=== PATIENT | female | born 1945 | race Caucasian/White ===

== ENCOUNTER → 2021-10-31 00:19 | Outpatient (CLI) | payer MEDICARE, BC, SELFPAY ==
--- NOTE | 2021-10-31 08:45 | DI.NM_ITS ---
APPROVED REPORT Exam: Exercise Treadmill Patient Location: Out-Patient Room/Bed: Stress Nurse: Megan Galarza RN Ordering Provider:LEEROY THOMAS MD Contact Number: [phone] BMI: 52.91 Baseline Rhythm: Sinus Rhythm Comment: LAFB, RVH Indications: Chest pain Medical History Medical History: Hypertension, hyperlipidemia, diabetes, obesity Cardiac Medications: Aspirin, atorvastatin, lasix, lisinopril, HCTZ, metoprolol succinate Allergies: Keflex Cardiac Risk Factors: Hypertension, hyperlipidemia, diabetes, obesity, smoker (former) Previous Cardiac Procedures: None Pretest Chest Pain Characteristics: None Exercise History: Sedentary Physical Disabilities: Limitation w/ exercise capacity Lung Sounds: Clear to auscultation Heart Sounds: Regular Stress Test Details Test: Exercise stress testing was performed using a modified Riley protocol. Nuclear Acquisition: Rest Tc-99m/Stress Tc-99m 1 day Rest Isotope: Tc-99m Sestamibi. Dose: 14.0 Date: 10/31/2021 Injection Time: 0845 Stress Isotope: Tc-99m Sestamibi. Dose: 45.0 Date: 10/31/2021 Injection Time: 45.0 HR Resting HR Supine: 84 bpm Max Heart Rate (APMHR): 146.231519 bpm Resting HR Standin bpm Target HR (85% APMHR): 124.829299 bpm Max HR Achieved: 138 bpm % of APMHR: 94.52 Recovery HR: 98 bpm HR response to stress: Normal HR response to stress Comment: Metoprolol succinate held for 48 hrs BP Resting BP Supine: 158/70 mmHg Resting BP Standin/68 mmHg Max BP: 222/82 mmHg Recovery BP: 148/60 mmHg BP response to stress: Abnormal hypertensive response to stress. ECG Resting ECG: Sinus Rhythm, LAFB, RVH Ectopy: None Stress ECG: Sinus Tachycardia ST Change: No significant ST segment changes noted Arrhythmia: Frequent multifocal PVCs, couplets Recovery ECG: Sinus Rhythm Recovery ST Change: No significant ST segment changes noted Recovery Arrhythmia: Rare PAC, occasional PVCs Clinical Reason for Termination: Fatigue, Dyspnea Stress Symptoms: General Fatigue, Dyspnea Exercise duration: 2 min59 sec Highest Stage Reached: Stage 0: 1.7 mph at 0% grade. Exercise capacity: 2.30 METs Angina Score: None Kraft Treadmill Score: 2.7 Rate Pressure Product: [id number] Stress ECG Conclusion 1. Resting electrocardiogram showed left anterior fascicular block, abnormal R wave progression 2. Patient exercised on a modified Riley protocol and completed a workload of 2.3 METS 3. Hypertensive blood pressure response to exercise. Accelerated heart rate response to exercise. T he patient achieved 94% of predicted heart rate for age 4. The electrocardiographic portion of the test showed no evidence of myocardial ischemia 5. PVCs were noted 6. See MPI report Kraft Treadmill Score is 2.7 which is Moderate risk. Stress Test Summary STAGE Time (mins) Speed (mph) Grade (%) HR BP SYMPTOMS METS Supine 84 158/70 Standing 97 174/68 SpO2 94% 1 3 1.7 10 135 182/72 Moderate SOB, SpO2 87% 4.6 1 min recovery 121 222/82 Mild SOB, SpO2 89% 3 min recovery 105 212/72 SOB improving, SpO2 91% 6 min recovery 98 148/60 SOB resolved, SpO2 95% Pt exercised with Modified Riley protocol at 1.7 mph at 0% grade. Tolerated testing well. MPI Conclusion Myocardial perfusion is normal. There is no evidence of ischemia or prior infarction EF 65%, normal wall motion Radiologist Interpretation Radiologist agrees with Outside Barrel Lathe Operator's Interpretation. Radiologist Interpretation by: Mallorie Cook MD Interpretation Date/Time: 10/31/2021 17:03:28
== END ==
PROVIDERS: Visit Provider Internal Medicine Interventional Cardiology
DX: R07.89 Other chest pain (principal)
CPT/HCPCS: 78452; 93016; 93018; 93017

== ENCOUNTER 2022-03-05 09:27 | Day surgery (SDC) | payer MEDICARE, BC, SELFPAY ==
--- NOTE | 2022-03-05 06:44 | W.ANESPRE ---
General Info Date of Service Date Performed: 03/05/22 Height: 5 ft 5.5 in Weight: 142.428 kg Body Mass Index (BMI): 51.4 Surgical Procedure: Operation Date: 03/05/22 12:40 Proposed Procedure Side Surgeon p Cataract Extraction with IOL Implant Left Felipe Clements MD Meds Allergies and Home Medications Allergies Allergy/AdvReac Type Severity Reaction Status Date / Time cephalexin Allergy Intermediate Skin Rash Unverified 03/05/22 09:47 Home Medication Medication Instructions Recorded aspirin 325 mg tablet 325 mg PO DAILY 03/01/22 atorvastatin 40 mg tablet 1 tab PO DAILY 03/01/22 cyanocobalamin (vitamin B-12) 100 100 mcg PO DAILY 03/01/22 mcg tablet (Vitamin B-12) furosemide 40 mg tablet 1 tab PO DAILY 03/01/22 insulin glargine 100 unit/mL (3 20 unit subcut BID 03/01/22 mL) subcutaneous pen (Basaglar KwikPen U-100 Insulin) insulin lispro 100 unit/mL 10 unit subcut QID 03/01/22 subcutaneous pen (Humalog KwikPen (U-100) Insulin) levothyroxine 100 mcg tablet 1 tab PO DAILY 03/01/22 liraglutide 0.6 mg/0.1 mL (18 mg/3 1.8 mg subcut DAILY 03/01/22 mL) subcutaneous pen injector (Victoza 2-Taiwo) lisinopril 20 1 tab PO BID 03/01/22 mg-hydrochlorothiazide 12.5 mg tablet metformin 500 mg tablet 1 tab PO BID 03/01/22 metoprolol succinate 50 mg 1 tab PO DAILY 03/01/22 tablet,extended release 24 hr naloxone 4 mg/actuation nasal 4 mg intranasal DIRECTED 03/01/22 spray (Narcan) oxycodone-acetaminophen 5 mg-325 1 tab PO QID PRN 03/01/22 mg tablet Current Visit Medications: Current Medications Generic Name Dose Route Start Last Admin Trade Name Freq PRN Reason Stop Dose Admin Acetaminophen 1,000 mg 03/05/22 06:00 Acetaminophen 500 Mg Tab PO Q4H PRN PRN Miscellaneous Medication 0 ml 03/05/22 06:00 Prednisolone 1%, Moxifloxacin 0.5%, Nepafenac 0.1% 5ml Btl OS DIRECTED AMMY Miscellaneous Medication 0 ml 03/05/22 06:00 Tropicam./Phenyleph. (1/2.5%) 5 Ml Btl OS DIRECTED [facility] Tetracaine HCl 0 ml 03/05/22 06:00 Tetracaine 0.5% 4 Ml Btl OS DIRECTED [facility] Medical History Medical History Carpal tunnel syndrome, left Chronic back pain Diabetes mellitus Disorder of thyroid gland Hip pain Hypercapnia Hypercapnic respiratory failure Hypertensive disorder Knee pain Lesion of ulnar nerve Mallet finger Surgical History Surgical History History of carpal tunnel surgery of right wrist Hx of section Hx of colonoscopy Hx of tonsillectomy Tobacco Smoking/Tobacco Use Status: Former Tobacco Use Alcohol Alcohol Intake: current Alcohol intake frequency: holidays/special occasions only Substance Use Substance use: Never Substance use type: does not use Vital Signs and Lab Results Vital Signs Most Recent Vital Signs in EMR: Temp Pulse Resp BP Pulse Ox 36.5 C 70 18 173/69 H 98 03/05/22 09:30 03/05/22 09:30 03/05/22 09:30 03/05/22 09:30 03/05/22 09:30 Lab Results Blood Type / Crossmatch: No Data to Display Complete Blood Count: No Data to Display Complete Metabolic Panel: No Data to Display Liver Function Panel: No Data to Display Coagulation Panel: No Data to Display Cardiac Panel: No Data to Display Arterial Blood Gas: No Data to Display Venous Blood Gas: No Data to Display Pancreas Panel: No Data to Display Thyroid Panel: No Data to Display Infectious Disease: No Data to Display Blood Cultures: No Data to Display Toxicology Panel: No Data to Display Imaging and Studies Imaging and Studies Study information below may be from another EMR and interpreted by another provider. Please see original notes in EMR for more complete details. Stress Test Summary: 11/15: LAFB. 2.3 METS, no evidence of ischemia on EKG portion. MPI with noromal perfusion. Anesthesia Assessment and Plan Anesthesia History Personal History: No History of Anesthesia Complications Family History: No Family History of Anesthesia Complications Exercise Tolerance Exercise Tolerance: Metabolic Equivalents>4 Cardiac & Pulmonary Exam Cardiac Exam: Normal S1/S2 Heart Sounds Pulmonary Exam: Clear Bilateral Breath Sounds Implantable Cardiac Device Does patient have a Pacemaker or an ICD?: No Airway Exam Known Difficult Airway: No Mallampati Class: 2 Mouth Opening: Normal (> 3cm) Thyromental Distance: Greater than 3 cm Neck Range of Motion: Full ROM Neck Circumference: Thick Teeth Condition: Normal Dentition ASA Classification ASA Score: ASA 3 Emergency Case?: No NPO Status NPO Status: NPO Clears >2 hours, Solids >8 hours Anesthesia Plan Resuscitation Status: Full Code Anesthesia Technique: MAC Anesthesia Airway Planned: Natural Airway Monitors Used: Standard Monitors Preoperative Comments:: 76 female for cataract removal. Sig PMHx: DM, HTN, former smoker, hypothyroid. Would like MKO
[2022-03-05 09:30] VITALS: BP 173/69; PULSE 70; RESP 18; TEMP 36.5; O2SAT 98
[2022-03-05] MEDS: Tropicam./Phenyleph. (1/2.5%) 5 ML BTL OS ×3 (09:47→10:11)
[2022-03-05 10:03] VITALS: BMI 51.4
[2022-03-05] MEDS: Lidocaine 2% Jelly 6 ML SYR (10:49)
[2022-03-05] MEDS: Tetracaine 0.5% 4 ML BTL OS (10:49)
[2022-03-05] MEDS: Povidone-Iodine Ophth 30 ML BTL (10:50)
[2022-03-05] MEDS: Balanced Salt Soln.-PLUS 500 ML BAG (10:53)
[2022-03-05] MEDS: Duovisc Viscoelastic System EACH 1 EACH (10:54)
[2022-03-05 11:12] VITALS: BP 125/53; PULSE 73; RESP 16; TEMP 36; O2SAT 98
--- NOTE | 2022-03-05 11:14 | PDOC.DSDIS_ITS ---
Discharge Plan Disposition Patient Disposition: HOME Condition: Good Discharge Details Attending Provider: Felipe Clements Primary Care Provider: Manoj Roe [place] Meds and New Rx's Prescriptions: No Action furosemide 40 mg tablet 1 tab PO DAILY Label Comments: TAKE 1 TABLET BY MOUTH DAILY atorvastatin 40 mg tablet 1 tab PO DAILY Label Comments: TAKE 1 TABLET BY MOUTH DAILY metformin 500 mg tablet 1 tab PO BID cyanocobalamin (vitamin B-12) [Vitamin B-12] 100 mcg Tablet 100 mcg PO DAILY lisinopril-hydrochlorothiazide 20-12.5 mg tablet 1 tab PO BID Label Comments: TAKE 1 TABLET BY MOUTH TWICE DAILY aspirin 325 mg Tablet 325 mg PO DAILY metoprolol succinate 50 mg tablet extended release 24 hr 1 tab PO DAILY Label Comments: TAKE 1 TABLET BY MOUTH EVERY DAY levothyroxine 100 mcg tablet 1 tab PO DAILY Label Comments: TAKE 1 TABLET BY MOUTH DAILY oxycodone-acetaminophen 5-325 mg tablet 1 tab PO QID PRN Label Comments: TAKE 1 TABLET BY MOUTH 4 TIMES DAILY NEEDED insulin lispro [Humalog KwikPen Insulin] 100 unit/mL insulin pen 10 unit SUBCUT QID insulin glargine [Basaglar KwikPen U-100 Insulin] 100 unit/mL (3 mL) insulin pen 20 unit SUBCUT BID Victoza 2-Taiwo 0.6 mg/0.1 mL (18 mg/3 mL) Pen Injector 1.8 mg SUBCUT DAILY naloxone [Narcan] 4 mg/actuation [place],Non-Aerosol 4 mg INTRANASAL DIRECTED Discharge Instructions Stand Alone Forms: Post-op Topical CataractKaur (DSU) Discharge Orders Discharge Orders: Discharge Order (Routine); Ordered 03/05/22 Ordered By: Felipe Clements DS: Diagnosis Discharge Diagnosis (1) Cortical cataract of left eye: Status: Resolved (2) Nuclear sclerotic cataract of left eye: Status: Resolved (3) Posterior subcapsular age-related cataract of left eye: Status: Resolved
--- NOTE | 2022-03-05 11:15 | W.PM.OP ---
Date of service: 03/05/22 Time of Service: 11:15 Operative Note Operative Note DATE OF PROCEDURE: 03/05/22 PRE-OP DIAGNOSIS: Nuclear/cortical/posterior subcapsular cataract, left eye POST-OP DIAGNOSIS: same PROCEDURE: Cataract extraction using phacoemulsification with intraocular lens implant, left eye SURGEON: Felipe Clements ANESTHESIA TYPE: Local By Surgeon and MAC Refer to Anesthesia Record PATHOLOGY: none sent COMPLICATIONS: None Patient was transported to: same day Patient's condition: stable Implants: Judah [employer] Judah / [employer] Tecnis [id number] Indications: Progressive decreased vision due to cataract, left eye Procedure Description: CATARACT SURGERY OPERATIVE REPORT PREOPERATIVE DIAGNOSIS: 1. Nuclear/cortical/posterior subcapsular cataract, left eye POSTOPERATIVE DIAGNOSIS: Same OPERATION: 1. Cataract extraction using phacoemulsification with posterior chamber intraocular lens implant, left eye. IOL: IOL Concrete Boom Pump Operator/Model: Judah & Judah / EZEKIEL Tecnis [id number] IOL Power: + 18.5 diopters IOL Serial Number: [id number] Optic Diameter: 6.0 mm Haptic/Overall Diameter: 13.0 mm PHACO INFO: Hira Symphony Dynamourion Vision System with OZil and Active Fluidics Cumulative Dispersed Energy (CDE): 12.37 seconds SURGEON: Felipe Clements MD, YEVGENIY ANESTHESIA: Monitored A [facility] (MAC), with local sub-tenon's anesthetic infiltration COMPLICATIONS: None SPECIMENS: None INDICATIONS FOR PROCEDURE: Patient is a 76-year-old lady with history of diminished visual acuity in her left eye secondary to development of significant nuclear/cortical/posterior subcapsular cataract. The option of cataract surgery was offered to the patient and she felt she was symptomatic at that she wished to proceed. PROCEDURE: The correct surgical eye was identified and marked as the left eye and the pupil was dilated in the preoperative area using mydriatics and cycloplegics. The dilated pupil size was 6.0 mm. Oral sedation was administered in the form of an Imprimis MKO Melt (midazolam 3mg/ketamine 25mg/ondansetron 2mg). The patient was brought to the operating room where cardiopulmonary monitoring was instituted and surgical time-out was performed, confirming the correct operative eye and IOL power. Topical anesthesia was administered and ophthalmic povidone-iodine 5% was instilled into the conjunctival fornices. Lidocaine gel was applied to the cornea and the diallo-ocular area was prepped with Betadine 10% solution and draped in the usual sterile fashion for intraocular surgery, including an aperture drape. A Tegaderm transparent film dressing was cut in half and used to cover the lashes and lid margins. Care was taken to sequester the lashes and lid margins under the Tegaderm dressing. A lid speculum was placed between the lids of the operative eye and the Hira LuxOR Revalia operating microscope was maneuvered into position. Rayray scissors were then used to make a conjunctival buttonhole approximately 6mm posterior to the limbus in the inferonasal quadrant. Blunt dissection was carried out to expose bare sclera, and a blunt-tipped sub-tenon?s anesthesia cannula was introduced and passed posteriorly along the globe where non-preserved plain lidocaine was injected into posterior sub-Tenon?s space. A sideport knife was used to make a paracentesis port superiorly/superiortemporally. Intraocular phenylephrine/lidocaine was injected int the anterior chamber.. The anterior chamber was filled with viscoelastic. A keratome knife was used to construct a 2-plane near-clear corneal tunnel extending 2.0mm into clear cornea temporally. A flap was raised on the anterior capsule and capsulorhexis forceps were used to complete a continuous curvilinear capsulorhexis of 5.0 mm. Balanced salt solution was then used to perform cortical cleaving hydrodissection and nuclear hydrodelineation until the lens could be freely rotated within the capsular bag. The lens nucleus was then disassembled and removed within the capsular bag and iris plane using phacoemulsification. Residual cortical material was removed using the 45-degree angled silicone I/A tip with 0.3mm port. The posterior capsule was carefully polished to remove as much residual lens epithelial cells as safely possible. The capsular bag was then inflated and the anterior chamber deepened with viscoelastic. The lens implant described above was inserted into the capsular bag using the EZEKIEL [place] Injector. A Kuglen hook was used to dial the IOL into position. Residual viscoelastic was then removed first from posterior to the IOL, then from the anterior chamber using the I/A handpiece. The lens implant was noted to center nicely within the capsular bag. The incisions were stromally hydrated, and the anterior chamber was reformed using BSS. Then 0.5cc of moxifloxacin 1.0mg/ml were injected into the capsular bag and anterior chamber. The incisions were checked with a Weck spear and found to be secure. Several drops of ophthalmic povidone-iodine 5% were then applied to the eye followed by two drops of Imprimis combination prednisolone/moxifloxacin/nepafenac solution. The drapes were removed and a clear plastic protective eye shield was placed over the eye. The patient was then returned to Same Day Surgery in stable condition.
--- NOTE | 2022-03-05 11:18 | W.ANESPOSTOP ---
Postoperative Evaluation Date, Time and Location Date Performed: 03/05/22 Time Performed: 11:18 Patient Location: Day Surgery Unit Vital Signs Most Recent Imported Vital Signs: Most Recent Vital Signs Temp Pulse Resp BP Pulse Ox 36 C L 73 16 125/53 L 98 03/05/22 11:12 03/05/22 11:12 03/05/22 11:12 03/05/22 11:12 03/05/22 11:12 Assessment Mental Status: Awake (Alert & Oriented to Patient Baseline) Airway and Respiratory Function: Patent airway with normal (patient baseline) respiratory exam Cardiovascular Function: Hemodynamically Stable Hydration Status: Adequately Hydrated Nausea & Vomiting: No Nausea or Vomiting Pain: Pt. Denies Any Pain Peripheral Nerve Block: Patient did not receive a nerve block
[2022-03-05 11:40] VITALS: BP 131/60; PULSE 76; RESP 16; TEMP 36.1; O2SAT 98
--- NOTE | 2022-03-05 12:02 | W.ANESPOSTOP ---
Postoperative Evaluation Date, Time and Location Date Performed: 03/05/22 Time Performed: 12:03 Patient Location: Day Surgery Unit Vital Signs Most Recent Imported Vital Signs: Most Recent Vital Signs Temp Pulse Resp BP Pulse Ox 36.1 C L 76 16 131/60 98 03/05/22 11:40 03/05/22 11:40 03/05/22 11:40 03/05/22 11:40 03/05/22 11:40 Most Recent Vital Signs Temp Pulse Resp BP Pulse Ox 36 C L 73 16 125/53 L 98 03/05/22 11:12 03/05/22 11:12 03/05/22 11:12 03/05/22 11:12 03/05/22 11:12 Pain Score Most Recent Pain Score: Most Recent Pain Score Pain Level 0 03/05/22 11:40 Assessment Mental Status: Awake (Alert & Oriented to Patient Baseline) Airway and Respiratory Function: Patent airway with normal (patient baseline) respiratory exam Cardiovascular Function: Hemodynamically Stable Hydration Status: Adequately Hydrated Nausea & Vomiting: No Nausea or Vomiting Pain: Pt. Denies Any Pain Peripheral Nerve Block: Patient did not receive a nerve block
== END 2022-03-05 11:50 | disposition home or self-care (01) ==
PROVIDERS: PCP Family Medicine; Visit Provider Ophthalmology
PROC: (CPT 66984; principal; 2022-03-05 12:30)
DX: H25.042 Posterior subcapsular polar age-related cataract, left eye (principal); E11.9 Type 2 diabetes mellitus without complications
CPT/HCPCS: 66984; V2632

== ENCOUNTER 2022-03-19 10:47 | Day surgery (SDC) | payer MEDICARE, BC, SELFPAY ==
[2022-03-19 11:46] VITALS: BP 151/74; PULSE 76; RESP 18; TEMP 36.2; O2SAT 99
[2022-03-19] MEDS: Tropicam./Phenyleph. (1/2.5%) 5 ML BTL ×3 (11:46→12:00)
--- NOTE | 2022-03-19 11:58 | W.ANESPRE ---
General Info Date of Service Date Performed: 03/19/22 Height: 5 ft 5.5 in Weight: 139 kg Body Mass Index (BMI): 50.2 Surgical Procedure: Operation Date: 03/19/22 14:40 Proposed Procedure Side Surgeon p Cataract Extraction with IOL Implant Right Felipe Clements MD Meds Allergies and Home Medications Allergies Allergy/AdvReac Type Severity Reaction Status Date / Time cephalexin Allergy Intermediate Skin Rash Unverified 03/19/22 11:36 Home Medication Medication Instructions Recorded aspirin 325 mg tablet 325 mg PO DAILY 03/01/22 atorvastatin 40 mg tablet 1 tab PO DAILY 03/01/22 cyanocobalamin (vitamin B-12) 100 100 mcg PO DAILY 03/01/22 mcg tablet (Vitamin B-12) furosemide 40 mg tablet 1 tab PO DAILY 03/01/22 insulin glargine 100 unit/mL (3 20 unit subcut BID 03/01/22 mL) subcutaneous pen (Basaglar KwikPen U-100 Insulin) insulin lispro 100 unit/mL 10 unit subcut QID 03/01/22 subcutaneous pen (Humalog KwikPen (U-100) Insulin) levothyroxine 100 mcg tablet 1 tab PO DAILY 03/01/22 liraglutide 0.6 mg/0.1 mL (18 mg/3 1.8 mg subcut DAILY 03/01/22 mL) subcutaneous pen injector (Victoza 2-Taiwo) lisinopril 20 1 tab PO BID 03/01/22 mg-hydrochlorothiazide 12.5 mg tablet metformin 500 mg tablet 1 tab PO BID 03/01/22 metoprolol succinate 50 mg 1 tab PO DAILY 03/01/22 tablet,extended release 24 hr naloxone 4 mg/actuation nasal 4 mg intranasal DIRECTED 03/01/22 spray (Narcan) oxycodone-acetaminophen 5 mg-325 1 tab PO QID PRN 03/01/22 mg tablet atorvastatin 40 mg tablet 40 mg PO HS 03/19/22 PFS Active Problems Active Problems: Problem Status Onset Code Posterior subcapsular age-related cataract, right eye H25.041 Cortical cataract of right eye H26.9 Nuclear sclerotic cataract of right eye H25.11 Posterior subcapsular age-related cataract of left eye H25.042 Nuclear sclerotic cataract of left eye H25.12 Cortical cataract of left eye H26.9 Medical History Medical History Carpal tunnel syndrome, left Chronic back pain Diabetes mellitus Disorder of thyroid gland Hip pain Hypercapnia Hypercapnic respiratory failure Hypertensive disorder Knee pain Lesion of ulnar nerve Mallet finger Surgical History Surgical History History of carpal tunnel surgery of right wrist Hx of section Hx of colonoscopy Hx of tonsillectomy Tobacco Smoking/Tobacco Use Status: Former Tobacco Use Alcohol Alcohol Intake: current Alcohol intake frequency: holidays/special occasions only Substance Use Substance use: Never Substance use type: does not use Vital Signs and Lab Results Vital Signs Most Recent Vital Signs in EMR: Most Recent Vital Signs Temp Pulse Resp BP Pulse Ox 36.2 C L 76 18 151/74 H 99 03/19/22 11:46 03/19/22 11:46 03/19/22 11:46 03/19/22 11:46 03/19/22 11:46 Lab Results Blood Type / Crossmatch: No Data to Display Complete Blood Count: No Data to Display Complete Metabolic Panel: No Data to Display Liver Function Panel: No Data to Display Coagulation Panel: No Data to Display Cardiac Panel: No Data to Display Arterial Blood Gas: No Data to Display Venous Blood Gas: No Data to Display Pancreas Panel: No Data to Display Thyroid Panel: No Data to Display Infectious Disease: No Data to Display Blood Cultures: No Data to Display Toxicology Panel: No Data to Display Imaging and Studies Imaging and Studies Study information below may be from another EMR and interpreted by another provider. Please see original notes in EMR for more complete details. Stress Test Summary: 11/15: LAFB. 2.3 METS, no evidence of ischemia on EKG portion. MPI with noromal perfusion. Anesthesia Assessment and Plan Anesthesia History Personal History: No History of Anesthesia Complications Family History: No Family History of Anesthesia Complications Exercise Tolerance Exercise Tolerance: Metabolic Equivalents>4 Pertinent Negatives Pertinent Negatives: No Symptoms of GERD Cardiac & Pulmonary Exam Cardiac Exam: Normal S1/S2 Heart Sounds Pulmonary Exam: Clear Bilateral Breath Sounds Implantable Cardiac Device Does patient have a Pacemaker or an ICD?: No Airway Exam Known Difficult Airway: No Mallampati Class: 2 Mouth Opening: Normal (> 3cm) Thyromental Distance: Greater than 3 cm Neck Range of Motion: Full ROM Neck Circumference: Thick Teeth Condition: Normal Dentition ASA Classification ASA Score: ASA 3 Emergency Case?: No NPO Status NPO Status: NPO Clears >2 hours, Solids >8 hours Anesthesia Plan Resuscitation Status: Full Code Anesthesia Technique: MAC Anesthesia Airway Planned: Natural Airway Monitors Used: Standard Monitors Preoperative Comments:: Zelda VALADEZ
[2022-03-19 12:00] VITALS: BMI 50.2
[2022-03-19] MEDS: Tetracaine 0.5% 4 ML BTL (13:10)
[2022-03-19] MEDS: Balanced Salt Soln.-PLUS 500 ML BAG (13:11)
[2022-03-19] MEDS: Povidone-Iodine Ophth 30 ML BTL (13:12)
[2022-03-19] MEDS: Lidocaine 2% Jelly 6 ML SYR (13:12)
[2022-03-19] MEDS: Duovisc Viscoelastic System EACH 1 EACH (13:12)
[2022-03-19 13:15] VITALS: BP 141/62; PULSE 75; RESP 18; TEMP 36.6; O2SAT 94
--- NOTE | 2022-03-19 13:17 | W.PM.DSUDISC ---
Date of service: 03/19/22 Time of Service: 13:17 Discharge Plan Disposition Patient Disposition: HOME Condition: Good Discharge Details Attending Provider: Felipe Clements Primary Care Provider: Manoj Roe [facility] and New Rx's Prescriptions: No Action furosemide 40 mg tablet 1 tab PO DAILY Label Comments: TAKE 1 TABLET BY MOUTH DAILY atorvastatin 40 mg tablet 1 tab PO DAILY Label Comments: TAKE 1 TABLET BY MOUTH DAILY metformin 500 mg tablet 1 tab PO BID cyanocobalamin (vitamin B-12) [Vitamin B-12] 100 mcg Tablet 100 mcg PO DAILY lisinopril-hydrochlorothiazide 20-12.5 mg tablet 1 tab PO BID Label Comments: TAKE 1 TABLET BY MOUTH TWICE DAILY aspirin 325 mg Tablet 325 mg PO DAILY metoprolol succinate 50 mg tablet extended release 24 hr 1 tab PO DAILY Label Comments: TAKE 1 TABLET BY MOUTH EVERY DAY levothyroxine 100 mcg tablet 1 tab PO DAILY Label Comments: TAKE 1 TABLET BY MOUTH DAILY oxycodone-acetaminophen 5-325 mg tablet 1 tab PO QID PRN Label Comments: TAKE 1 TABLET BY MOUTH 4 TIMES DAILY NEEDED insulin lispro [Humalog KwikPen Insulin] 100 unit/mL insulin pen 10 unit SUBCUT QID insulin glargine [Basaglar KwikPen U-100 Insulin] 100 unit/mL (3 mL) insulin pen 20 unit SUBCUT BID Victoza 2-Taiwo 0.6 mg/0.1 mL (18 mg/3 mL) Pen Injector 1.8 mg SUBCUT DAILY naloxone [Narcan] 4 mg/actuation [place],Non-Aerosol 4 mg INTRANASAL DIRECTED atorvastatin 40 mg tablet 40 mg PO HS Label Comments: TAKE 1 TABLET BY MOUTH DAILY Discharge Instructions Stand Alone Forms: Post-op Topical Cataract, Kaur Adorno (DSU) Discharge Orders Discharge Orders: Discharge Order (Routine); Ordered 03/19/22 Ordered By: Felipe Clements DS: Diagnosis Discharge Diagnosis (1) Posterior subcapsular age-related cataract, right eye: Status: Resolved (2) Cortical cataract of right eye: Status: Resolved (3) Nuclear sclerotic cataract of right eye: Status: Resolved
--- NOTE | 2022-03-19 13:18 | ROE_ITS ---
Date of service: 03/19/22 Time of Service: 13:19 Operative Note Operative Note DATE OF PROCEDURE: 03/19/22 PRE-OP DIAGNOSIS: Nuclear/cortical/posterior subcapsular cataract, right eye POST-OP DIAGNOSIS: same PROCEDURE: Cataract extraction using phacoemulsification with intraocular lens implant, right eye SURGEON: Feliep Clements ANESTHESIA TYPE: Local By Surgeon and MAC Refer to Anesthesia Record ESTIMATED BLOOD LOSS: 0 PATHOLOGY: none sent COMPLICATIONS: None Patient was transported to: same day Patient's condition: stable Implants: [employer] Judah/EZEKIEL Tecnis [id number] Indications: Progressive visual loss due to cataract, right eye Procedure Description: CATARACT SURGERY OPERATIVE REPORT PREOPERATIVE DIAGNOSIS: 1. Nuclear/cortical/posterior subcapsular cataract, right eye POSTOPERATIVE DIAGNOSIS: Same OPERATION: 1. Cataract extraction using phacoemulsification with posterior chamber intraocular lens implant, right eye. IOL: IOL Supervisor Photocomposition/Model: Judah [employer] Judah / EZEKIEL Tecnis [id number] IOL Power: + 17.5 diopters IOL Serial Number: [id number] Optic Diameter: 6.0mm Haptic/Overall Diameter: 13.0mm PHACO INFO: Hira [employer] CVurion Vision System with OZil and Active Fluidics Cumulative Dispersed Energy (CDE): 8.49 seconds SURGEON: Felipe Clements MD, YEVGENIY ANESTHESIA: Monitored Anesthesia Care (MAC), with local sub-tenon's anesthetic infiltration COMPLICATIONS: None SPECIMENS: None INDICATIONS FOR PROCEDURE: Patient is a 76-year-old lady with history of diminished visual acuity in both eyes secondary to the development of bilateral nuclear/cortical/posterior subcapsular cataract. She has already undergone cataract surgery in her left eye and is doing well postoperatively. She now presents for cataract surgery in the right eye. PROCEDURE: The correct surgical eye was identified and marked as the right eye and the pupil was dilated in the preoperative area using mydriatics and cycloplegics. The dilated pupil size was 7.0 mm. Oral sedation was administered in the form of an Imprimis MKO Melt (midazolam 3mg/ketamine 25mg/ondansetron 2mg). The patient was brought to the operating room where cardiopulmonary monitoring was instituted and surgical time-out was performed, confirming the correct operative eye and IOL power. Topical anesthesia was administered and ophthalmic povidone-iodine 5% was instilled into the conjunctival fornices. Lidocaine gel was applied to the cornea and the diallo-ocular area was prepped with Betadine 10% solution and draped in the usual sterile fashion for intraocular surgery, including an aperture drape. A Tegaderm transparent film dressing was cut in half and used to cover the lashes and lid margins. Care was taken to sequester the lashes and lid margins under the Tegaderm dressing. A lid speculum was placed between the lids of the operative eye and the Hira LuxOR Revalia operating microscope was maneuvered into position. Rayray scissors were then used to make a conjunctival buttonhole approximately 6mm posterior to the limbus in the inferonasal quadrant. Blunt dissection was carried out to expose bare sclera, and a blunt-tipped sub-tenon?s anesthesia cannula was introduced and passed posteriorly along the globe where non- preserved plain lidocaine was injected into posterior sub-Tenon?s space. A sideport knife was used to make a paracentesis port inferotemporally. Intraocular phenylephrine/lidocaine was injected into the anterior chamber. The anterior chamber was filled with viscoelastic. A keratome knife was used to construct a 2-plane near-clear corneal tunnel extending 2.0mm into clear cornea superiortemporally. A flap was raised on the anterior capsule and capsulorhexis forceps were used to complete a continuous curvilinear capsulorhexis of 5.5 mm. Balanced salt solution was then used to perform cortical cleaving hydrodissection and nuclear hydrodelineation until the lens could be freely rotated within the capsular bag. The lens nucleus was then disassembled and removed within the capsular bag and iris plane using phacoemulsification. Residual cortical material was removed using the I/A handpiece. The posterior capsule was carefully polished to remove as much residual lens epithelial cells as safely possible. The capsular bag was then inflated and the anterior chamber deepened with viscoelastic. The lens implant described above was inserted into the capsular bag using the EZEKIEL [place] Injector. A Kuglen hook was used to dial the IOL into position. Residual viscoelastic was then removed first from posterior to the IOL, then from the anterior chamber using the I/A handpiece. The lens implant was noted to center nicely within the capsular bag. The incisions were stromally hydrated, and the anterior chamber was reformed using BSS. Then 0.5cc of moxifloxacin 1.0mg/ml were injected into the capsular bag and anterior chamber. The incisions were checked with a Weck spear and found to be secure. Several drops of ophthalmic povidone-iodine 5% were then applied to the eye followed by two dr ops of Imprimis combination prednisolone/moxifloxacin/nepafenac solution. The drapes were removed and a clear plastic protective eye shield was placed over the eye. The patient was then returned to [facility] Day Surgery in stable condition.
--- NOTE | 2022-03-19 13:30 | W.ANESPOSTOP ---
Postoperative Evaluation Date, Time and Location Date Performed: 03/19/22 Time Performed: 13:31 Patient Location: Day Surgery Unit Vital Signs Most Recent Imported Vital Signs: Most Recent Vital Signs Temp Pulse Resp BP Pulse Ox 36.6 C 75 18 141/62 H 94 03/19/22 13:15 03/19/22 13:15 03/19/22 13:15 03/19/22 13:15 03/19/22 13:15 Pain Score Most Recent Pain Score: Most Recent Pain Score Pain Level 0 03/19/22 13:15 Assessment Mental Status: Awake (Alert & Oriented to Patient Baseline) Airway and Respiratory Function: Patent airway with normal (patient baseline) respiratory exam Cardiovascular Function: Hemodynamically Stable Hydration Status: Adequately Hydrated Nausea & Vomiting: No Nausea or Vomiting Pain: Pt. Denies Any Pain Peripheral Nerve Block: Patient did not receive a nerve block
[2022-03-19 13:40] VITALS: BP 159/67; PULSE 79; RESP 18; TEMP 36.5; O2SAT 92
== END 2022-03-19 13:48 | disposition home or self-care (01) ==
LOC: SUR 10:47
PROVIDERS: PCP Family Medicine; Visit Provider Ophthalmology
PROC: (CPT 66984; principal; 2022-03-19 14:30)
DX: H25.041 Posterior subcapsular polar age-related cataract, right eye (principal)
CPT/HCPCS: 66984; V2632